=== PATIENT | male | born 1965 | race Caucasian/White ===

== ENCOUNTER → 2022-11-08 | Outpatient (CLI) | payer BC | END | disposition home or self-care (01) | LOC: LABPAT 13:53 | PROVIDERS: ATTEND Orthopaedic Surgery | DX: Z01.812 Encounter for preprocedural laboratory examination (principal); Z22.322 Carrier or suspected carrier of Methicillin resistant Staphylococcus aureus; M17.11 Unilateral primary osteoarthritis, right knee | CPT/HCPCS: 87070 ==

== ENCOUNTER 2022-11-14 08:24 | Day surgery (SDC) | payer BC ==
[2022-11-07 15:09] VITALS: BMI 31.8
--- NOTE | 2022-11-13 09:38 | P.HPOR ---
History of Present Illness H&P Date: 11/13/22 Chief Complaint: Right knee pain The patient is a 57-year-old retired male who presents with progressive right knee pain for the past several years worsening recently. He notes medial pain and swelling with all activity. He is having significant night symptoms. He tried medications in addition to injections with minimal relief. He notes daily pain that limits his normal function and activities. Review of Systems As per HPI Past Medical History Past Medical History: Cancer Additional Past Medical History / Comment(s): BASAL CELL CARCINOMA. BLEEDING ULCER History of Any Multi-Drug Resistant Organisms: None Reported Additional Past Surgical History / Comment(s): BASAL CELL CARCINOMA REMOVED. BLEEDING ULCER SURGERY Past Anesthesia/Blood Transfusion Reactions: No Reported Reaction Past Psychological History: No Psychological Hx Reported Smoking Status: Never smoker Past Alcohol Use History: Daily Additional Past Alcohol Use History / Comment(s): ABOUT 2 BEERS A DAY Past Drug Use History: None Reported - Past Family History Father Family Medical History: CVA/TIA, Deep Vein Thrombosis (DVT) Additional Family Medical History / Comment(s): FROM DVT POST OP Medications and Allergies Home Medications Medication Instructions Recorded Confirmed Type No Known Home Medications 11/07/22 11/07/22 History Allergies Allergy/AdvReac Type Severity Reaction Status Date / Time No Known Allergies Allergy Verified 11/07/22 14:33 Physical Examination - Knee right Appearance: effusion Effusion grade: grade 2 Tenderness with palpation: medial, lateral Pain: throughout ROM Gait: limping ROM: extension: -10 degrees ROM: flexion: 100 degrees Crepitus with motion: Yes Strength: extension: 5/5 Strength: flexion: 5/5 Meniscal tests: medial meniscal tests: positive, lateral meniscal tests: positive, medial joint line pain: positive, lateral joint line pain: positive Results The patient is a well-developed well-nourished male approximately 6 foot 1, 235 pounds of mesomorphic habitus. HEENT exam is nonfocal, neck is supple. He has painless passive motion of the right hip. Straight leg raise is negative. On the right knee, he is tender about the medial and lateral joint line. Collaterals are stable, Trisha is negative, Partha's is equivocal. His distal neurovascular exam appears intact in the right lower extremity. - Diagnostic results Knee x-ray: image reviewed (3 views of the right knee obtain the office shows severe lateral and patellofemoral compartment osteoarthrosis) Assessment and Plan Assessment: Right knee severe lateral and patellofemoral compartment osteoarthrosis Plan: I talked to the patient regarding his condition along with treatment options. At this point is quite symptomatically and limited because of pain related to his right knee osteoarthrosis despite conservative measures. After a thorough discussion he opted to proceed with surgery. We'll plan to proceed with right total knee arthroplasty. Risks and benefits were discussed at length layman's terms. We will institute DVT prophylaxis postoperatively.
[~2022-11-14 08:24] MED LIST: ACETAMINOPHEN TAB 500 MG TAB PO PRN; DEXAMETHASONE SOD PHOSPHATE 4 MG/ML 1 ML VIAL IV ONE; HYDROmorphone 0.5 MG/0.5 ML SYRINGE IVP PRN; LIDOCAINE 1% (10MG/ML) FOR IV START INTRADERMA PRN; MELOXICAM 7.5 MG TAB PO PRN; MIDAZOLAM 2 MG/2 ML VIAL IV PRN; ONDANSETRON 4 MG/2 ML VIAL IVP ONE; TRANEXAMIC 1,000 MG/100ML-NACL 1,000 MG in SALINE 1 100ML.BAG IVPB PRN
[2022-11-14] MEDS: LACTATED RINGERS 1,000 ML IV SCH (09:21)
[2022-11-14] MEDS ORDERED: KETAMINE HCL IN 0.9 % NACL 50 MG/5 ML SYRINGE ONE (10:20)
[2022-11-14] MEDS ORDERED: diphenhydrAMINE 50 MG/ML 1 ML VIAL ONE (10:20)
[2022-11-14] MEDS ORDERED: MIDAZOLAM 2 MG/2 ML VIAL ONE (10:20)
[2022-11-14] MEDS ORDERED: fentaNYL (PF) 50 MCG/ML 2 ML AMP ONE (10:20)
[2022-11-14] MEDS ORDERED: TRANEXAMIC 1,000 MG/100ML-NACL PREMIX BAG ONE (10:20)
[2022-11-14] MEDS ORDERED: PROPOFOL 10 MG/ML 20 ML VIAL IV ONE (10:20)
[2022-11-14] MEDS ORDERED: DEXAMETHASONE SOD PHOSPHATE 4 MG/ML 1 ML VIAL ONE (10:20)
[2022-11-14] MEDS ORDERED: GLYCOPYRROLATE 0.2 MG/ML 2 ML VIAL ONE (10:20)
[2022-11-14] MEDS ORDERED: ROPIVACAINE 5 MG/ML 30 ML VIAL ONE (10:20)
[2022-11-14] MEDS ORDERED: ceFAZolin 1,000 MG in SODIUM CHLORIDE 0.9% 1,000 ML IRRIGATION ONE (10:55)
[2022-11-14] MEDS ORDERED: LACTATED RINGERS 1,000 ML IV ONE (11:22)
[2022-11-14] MEDS ORDERED: NALOXONE 0.4 MG/ML 1 ML VIAL IV PRN (12:10)
[2022-11-14] MEDS ORDERED: HYDROmorphone 0.5 MG/0.5 ML SYRINGE IVP PRN (12:10)
[2022-11-14] MEDS ORDERED: hydrOXYzine pamoate 25 MG CAP PO PRN (12:10)
[2022-11-14] MEDS ORDERED: MAGNESIUM HYDROXIDE 2,400 MG/30 ML CUP PO PRN (12:10)
[2022-11-14] MEDS ORDERED: HYDROmorphone 1 MG/ML 1 ML SYRINGE IVP PRN (12:10)
[2022-11-14] MEDS ORDERED: HYDROcodone/APAP 5-325MG 1 EACH TAB PO PRN (12:10)
--- NOTE | 2022-11-14 12:34 | P.OP ---
Date of Procedure: 11/14/22 Preoperative Diagnosis: Right knee severe tricompartmental osteoarthrosis Postoperative Diagnosis: Same Procedure(s) Performed: Right total knee arthroplastycementedcruciate retaining Implants: Depuy Attune size 9 cemented femoral component, size 8 cemented tibial component, 10 mm articular surface, 41 mm cemented patellar component. This was a cruciate retaining implant. Anesthesia: regional, spinal Surgeon: Yash Pastrana [facility] Manager #1: Augustus Valverde Estimated Blood Loss (ml): 50 Pathology: none sent Condition: stable Disposition: PACU Indications for Procedure: The patient is a 49-year-old male who presents with progressive right knee pain secondary to osteoarthrosis despite conservative measures. A discussion of the risks and benefits of operative intervention versus continued conservative measures was made with patient. He opted proceed with surgery. Operative risks to include infection, neurovascular injury, fracture, development of blood clots, component loosening, possible component failure and need for subscap procedures was discussed. Informed consent was obtained. Operative Findings: As below Description of Procedure: The patient was brought to the operating room, and after induction of spinal anesthesia the right lower extremity was prepped and draped in a normal fashion. The tourniquet was inflated to 270 mmHg. A longitudinal incision extending 3 finger breaths above the superior pole of the patella extending to the medial aspect the tibial tubercle was then made. The skin and subcutaneous tissues were divided sharply. Electrocautery was used for hemostasis. A medial parapatellar arthrotomy was then performed. The medial soft tissues to include the superficial and deep portions of the medial collateral ligament as well as the medial hamstring tendons were elevated subperiosteally. The proximal medial tibia osteophytes were carefully removed. The patella was everted. The knee was flexed. A portion of the retropatellar fat pad was excised sharply. The anterior cruciate ligament was sacrificed. A starting hole was made in the distal femur 1 cm anterior to the posterior cruciate origin. An intramedullary femoral guide was gently inserted planning on 5 valgus distal cut with 9 mm distal resection. The cutting block was pinned in place. The distal cut was then made. The posterior referencing sizing guide was utilized. 3 of external rotation was built into the system and verified off the trans- epicondylar axis and the posterior condyles. I felt size 9 was most appropriate. The cutting block was pinned in place. The anterior, posterior, and chamfer cuts were then made. The bone fragments were removed. A sulcus cut was then made with the appropriate guide. The trial size 9 femoral component was then placed and was fully seated. There was good anterior to posterior and medial to lateral fit. The distal peg holes were then drilled. The trial component was then removed. Attention was then paid towards preparing the proximal tibia. An extra medullary guide was utilized in line with the tibial shaft and second metatarsal distally. A 7 posterior slope was planned. I planned on 2 mm resection from the medial compartment. The cutting block was pinned in place. The proximal tibial cut was then made. The bone was removed in one fragment. The remnants of the medial and lateral menisci were excised the capsule junction with electrocautery. The tibia sized most appropriately at size 8. The posterior osteophytes off the distal femur were carefully removed with a curved osteotome. The trial tibial and femoral components were placed along with a 10 millimeters articular surface. I was able to obtain full flexion and extension with good stability with varus and valgus stress. After several flexion and extension cycles, the tibial rotation was marked with electrocautery in line with the medial one third of the tibial tubercle. Attention was then paid towards preparing the patella. A patella reamer was utilized taking this down to 14 mm of bone stock. A good flush cut was made. The patella sized most appropriately at 41 millimeters. The peg holes were then drilled. The trial component was placed. The knee was taken through a range of motion. I had good patellofemoral tracking with no hands technique. The trial components were then removed. The tibia was prepared in the appropriate rotation with appropriate drill and keel punch. The flexion and extension gaps were checked and felt to be symmetric. The bony surfaces were prepared with pulsatile lavage and dried. The deep tibial component was then cemented in place and was fully seated. Excess cement was removed. The femoral component was cemented in place and was fully seated. Again excess cement was removed. The trial 10 millimeters surface was then inserted in the knee was put in full extension. The patella component was cemented in place. After the cement had sufficiently hardened, the knee was again taken through a range of motion. Again there was good stability in flexion and extension with varus and valgus stress. The trial articular surface was then removed. The final articular surface was placed and was impacted. Care was taken to avoid any soft tissue interposition. Pulsatile lavage was again utilized. The tourniquet was deflated with approximately 60 minutes total tourniquet time. There was minimal drainage therefore a deep drain was not placed. The medial parapatellar arthrotomy was then closed with #2 Ethibond suture. The subcutaneous tissues were reapproximated interrupted 2-0 Vicryl sutures. The skin was reapproximated with 3-0 subarticular strata fix suture. Skin tape and adhesive was applied. A sterile dressing was applied. The patient was then awoken from sedation and transferred to recovery room in good condition. Blood loss was estimated at[] milliliters. No complications were incurred. Sponge and needle counts were correct at the end the case. Augustus CONNORS assisted during the major components this case to include exposure, bone resection, and implantation.
[2022-11-14] MEDS ORDERED: ROPIVACAINE 0.2%-NS ON-Q PUMP 2 MG/ML EACH MISCELLANE ONE (12:39)
--- NOTE | 2022-11-14 12:58 | XR ---
EXAMINATION TYPE: XR knee limited RT DATE OF EXAM: 11/14/2022 12:54 PM INDICATION: Patient age:Male; 57 years old; Reason for study: Evaluation for Postop abnormality and alignment; [facility]. COMPARISON: Right knee radiographs 07/19/2022 TECHNIQUE: The Right knee(s) was examined in until crosstable lateral projections. FINDINGS: Postsurgical changes from total right knee arthroplasty with distal femoral and proximal tibial components. Hardware appears intact with appropriate alignment. There is associated soft tissu e gas and edema. No acute fracture or dislocation. IMPRESSION: Postsurgical changes from total right knee arthroplasty. Hardware appears intact with appropriate ali gnment.
[2022-11-14 17:57] VITALS: RESP 18
[2022-11-14] MEDS: HYDROcodone/APAP 7.5-325MG 1 EACH TAB PO PRN (18:39)
[2022-11-14] MEDS ORDERED: SENNOSIDES-DOCUSATE SODIUM 1 EACH TAB PO SCH (21:00)
[2022-11-15] MEDS: HYDROcodone/APAP 7.5-325MG 1 EACH TAB PO PRN ×3 (01:13→11:43)
--- NOTE | 2022-11-15 07:02 | P.PN ---
Progress Note - Text Progress Note Date: 11/15/22 Postoperative day # 1 status post total knee arthroplasty, and adductor canal catheter placed for postoperative analgesia, currently at ropivacaine 0.2% 8 mL per hour and continuous infusion, visual analogue scale is 3/10, patient using oral pain medication for breakthrough pain. Assessment and plan= Acute postoperative pain, adductor canal catheter for pain control, pain is well controlled we'll continue the same management.
[2022-11-15] MEDS: LACTATED RINGERS 1,000 ML IV SCH (07:50)
[2022-11-15 08:24] VITALS: BP 125/76; PULSE 66; TEMP 97.9
--- NOTE | 2022-11-15 08:34 | P.PN ---
Subjective Progress Note Date: 11/15/22 Principal diagnosis: Right knee osteoarthritis Patient was seen at bedside this morning lying semirecumbent position eating breakfast. Patient says his pain is well-controlled with oral medication. Patient says he has been up around the room several times since surgery yesterda y. Patient says he has urinated several times. Patient says he has not had bowel movement yet, however, patient says he has been passing gas. Patient is looking forward to working with therapy earlier this morning and is hoping to go home today. Patient says he does not have great home. Patient denies any chest pain, fever, shortness breath, nausea, vomiting, change in vision, loss of bowel/bladder control. Objective - Vital Signs Vital signs: Vital Signs Temp 97.9 F 11/15/22 07:20 Pulse 66 11/15/22 07:20 Resp 18 11/15/22 07:20 BP 125/76 11/15/22 07:20 Pulse Ox 97 11/15/22 07:20 FiO2 Intake & Output 11/14/22 11/15/22 11/15/22 18:59 06:59 18:59 Intake Total 1931 Output Total 50 Balance 1881 Weight 109.5 kg Intake: IV 1451 Oral 480 Output: Estimated Blood Loss 50 Other: Voiding Method Toilet # Voids 0 2 - Exam Right knee: Incision is clean, dry, and intact. The exofin fusion tape is in good condition. There is minimal soft tissue swelling and ecchymosis surrounding the medial and lateral aspects of the incision. Calf is soft, no tenderness with palpation. Plantar flexion, dorsiflexion, EHL, FHL are intact. Sensory exam to light touch throughout the extremity is intact, dorsal pedis pulses 2+. Assessment and Plan Assessment: 1. Right knee osteoarthritis - Postop day 1 status post right total knee arthroplasty Plan: 1. Right knee osteoarthritis - right total knee arthroplasty performed yesterday, 11/14/2022. Patient stable at bedside this morning. Pain medication as needed. Walker prescription signed for home. Pending PT/OT, plan for discharge home with health services later today. 2. Appreciate medical management 3. Pain management - [place] 4. DVT prophylaxis - Xarelto in hospital. Going home with eliquis 2.5 mg twice a day 2 weeks 5. GI prophylaxis - senna 6. PT/OT - weightbearing as tolerated with walker 7. Encourage incentive spirometer use 8. Discharge planning - pending PT/OT eval, plan for discharge home with health services later today. Time with Patient: Less than 30
[2022-11-15] MEDS ORDERED: RIVAROXABAN 10 MG TAB PO SCH (09:00)
--- NOTE | 2022-11-15 10:47 | P.DS ---
Providers Date of admission: 11/14/2022 Expected date of discharge: 11/15/22 Attending physician: Yash Pastrana Consults: 11/14/22 12:10 Consult Physician Routine Consulting Provider: Gissell Stearns Consult Reason/Comments: Medical Management s/p right total knee arthroplasty Do you want consulting provider notified?: Yes Primary care physician: Stated None Hospital Course: Date of admission: 11/14/2022 Date of discharge: 11/15/2022 Admission diagnosis: Right knee osteoarthritis Discharge diagnosis: Same Attending physician: Dr. Pastrana Surgical procedures: Right total knee arthroplasty Brief history: Patient is a 57-year-old male with a history of progressive primary right knee osteoarthritis. At this point patient has failed conservative treatment measures and has opted to proceed with a elective right total knee arthroplasty. Hospital course: Details of patient's surgery can be found in operative report. Patient tolerated the procedure well and was subsequently transported to orthopedic floor. Patient's orthopeidc and medical care was provided daily. Patient had daily laboratory tests performed for evaluation of overall blood counts. Patient had daily physical therapy to include strengthening range of motion as well as education with walker ambulation. Patient was treated with Xarelto for their postoperative DVT prophylaxis during their inpatient stay. Patient was noted to have a relatively uneventful postoperative course. Patient reported satisfactory pain control with oral pain medications by postoperative day 1. Patient showed satisfactory progress with physical therapy. Patient moved steadily through the program and had no difficulty meeting the goals by postoperative day 1. Given patient's otherwise satisfactory course and having met physical therapy goals, plan is to discharge patient home with health services on postoperative day 1. Discharge condition/disposition: Patient will be discharged home with health services in stable condition. Discharge medications: Instructions are given on resumption of patient's normal daily medications per primary care recommendation, in addition patient will be prescribed [place] 7.5 mg/325 mg 12 every 6 hours; senna; Eliquis 2.5 mg twice a day 2 weeks. Discharge instructions: 1. Wound care and infection precautions, keep incision dry and covered while showering, no lotions, creams, moisturizers. No soaking, tubs, pools, hottubs. Do not scrub over the incision. 2. Weight-bear as tolerated with walker / cane until follow-up. 3. Ice and elevate when necessary. Do not exceed 20 minutes per hour with ice pack. 4. Utilize compression sleeve until seen at first follow up appointment. 5. Visiting nursing care. 6. Home physical therapy including home CPM. 7. Pain meds and anticoagulants per prescription. 8. Pain medication has potential to cause constipation. Increase oral fluid and fiber intake. Contact primary care provider if you have not had a bowel movement within 48 hours after discharge 9. No anti-inflammatory medication until discussed at first post operative visit, this including Motrin, Aleve, Mobic, Diclofenac. 10. Follow up in office at 2 weeks postop with Mick Shelton PA-C / Augustus Valverde PA-C 11. Follow up with your primary care doctor 7-10 days after discharge. 12. Contact [facility] with any questions, . Assessment: Right knee osteoarthritis Procedures: Right total knee arthroplasty Patient Condition at Discharge: Good Plan - Discharge Summary Discharge Rx Participant: Yes New Discharge Prescriptions: New Apixaban [Eliquis] 2.5 mg PO BID #60 tab HYDROcodone/APAP 7.5-325MG [[place] 7.5] 1 - 2 each PO Q6HR PRN #36 tab PRN Reason: Pain Sennosides/Docusate Sodium [Senna Plus 8.6-50 mg Softgel] 1 each PO DAILY #20 capsule Discharge Medication List Apixaban [Eliquis] 2.5 mg PO BID #60 tab 11/15/22 [Rx] HYDROcodone/APAP 7.5-325MG [Newnan 7.5] 1 - 2 each PO Q6HR PRN #36 tab 11/15/22 [Rx] Sennosides/Docusate Sodium [Senna Plus 8.6-50 mg Softgel] 1 each PO DAILY #20 capsule 11/15/22 [Rx] Follow up Appointment(s)/Referral(s): Augustus Valverde, PAC [PHYSICIAN ARM MAKER] - 2 Weeks Patient Instructions/Handouts: Knee Replacement (DC) Activity/Diet/Wound Care/Special Instructions: Orthopedic Discharge Instructions: 1. Wound care and infection precautions, keep incision dry and covered while showering, no lotions, creams, moisturizers. No soaking, pools, hot tubs. Do not scrub over incision. 2. Weight-bear as tolerated with walker / cane until follow-up. 3. Ice and elevate when necessary. Do not exceed 20 minutes per hour with ice pack. 4. Utilize compression sleeve until seen at first follow up appointment. 5. Pain meds and anticoagulants per prescription. 6. Pain medication has potential to cause constipation. Increase oral fluid and fiber intake. Contact primary care provider if you have not had a bowel movement within 48 hours after discharge. 7. No anti-inflammatory medication until discussed at first post operative visit, this including Motrin, Aleve, Mobic, Diclofenac. 8. Follow up in office at 2 weeks postop with Mick Shelton PA-C / Augustus Valverde PA-C 9. Follow up with your primary care doctor 7-10 days after discharge. 10. Contact [facility] with any questions, . Keep incision clean, dry, intact. While showering, cover fusion tape with Saran wrap. Keep fusion tape on until follow-up appointment in office in 2 weeks Discharge Disposition: HOME WITH HOME HEALTH SERVICES
[2022-11-15 15:34] LABS: Basophils # (A) 0.02 X 10*3/uL (0.00-0.10); Basophils % (A) 0.2 %; Eosinophils # (A) 0.01 X 10*3/uL (0.04-0.35); Eosinophils % (A) 0.1 %; HCT 38.2 % (39.6-50.0); HGB 12.6 d/dL (13.0-17.0); Lymphocytes % (A) 9.7 %; MCH 30.2 pg (27.0-32.0); MCV 91.6 FL (80.0-97.0); Mean Platelet Volume 11.4 FL (9.5-12.2); Monocytes # (A) 0.72 X 10*3/uL (0.20-1.00); Monocytes % (A) 5.8 %; NRBC Per 100 WBC 0 X 10*3/uL (0.00-0.01); Neutrophils # (A) 10.34 X 10*3/uL (1.80-7.70); Neutrophils % (A) 83.7 %; Platelet Count 215 X 10*3/uL (140-440); RBC 4.17 X 10*6/uL (4.40-5.60); RDW 12.7 % (11.5-14.5); WBC 12.35 X 10*3/uL (4.50-10.00)
--- NOTE | 2022-11-15 18:29 | P.ANPRN ---
Procedure Note - Anesthesia - Nerve Block Performed Right Adductor Canal Infusion Time Out Performed: Yes Date of Procedure: 11/14/22 Procedure Start Time: 09:42 Procedure Stop Time: 09:51 Location of Patient: PreOp Indication: Acute Post-Operative Pain, Requested by Surgeon Sedation Type: Sedate with meaningful contact maintained Preparation: Sterile Prep, Sterile Dressing Position: Supine Catheter: Indwelling Needle Types: Pajunk Needle Gauge: 21 Ultrasound used to visualize needle placement: Yes Ultrasound used to observe medication spread: Yes Blood Aspirated: No Pain Paresthesia on Injection Noted: No Resistance on Injection: Normal Image Stored and Saved: Yes Events: Uneventful and Well Tolerated (Ropivacaine 0.5% 20 mL plus dexamethasone 4 mg)
--- NOTE | 2022-11-15 18:32 | P.ANPRN ---
Procedure Note - Anesthesia - Nerve Block Performed Right [place] Single Time Out Performed: Yes Date of Procedure: 11/14/22 Procedure Start Time: :52 Procedure Stop Time: :55 Location of Patient: PreOp Indication: Acute Post-Operative Pain, Requested by Surgeon Sedation Type: Sedate with meaningful contact maintained Preparation: Sterile Prep Position: Supine Needle Types: Pajunk Needle Gauge: 21 Ultrasound used to visualize needle placement: Yes Ultrasound used to observe medication spread: Yes Blood Aspirated: No Pain Paresthesia on Injection Noted: No Resistance on Injection: Normal Image Stored and Saved: Yes Events: Uneventful and Well Tolerated (Ropivacaine 0.5% 25 mL plus dexamethasone 4 mg)
== END 2022-11-15 11:49 | disposition home health service (06) ==
LOC: OR 08:24 → 4SSUR 12:24 → OR 11-15 11:49
PROVIDERS: ATTEND Orthopaedic Surgery
DX: M17.11 Unilateral primary osteoarthritis, right knee (principal); G89.18 Other acute postprocedural pain; Z85.828 Personal history of other malignant neoplasm of skin; Z86.59 Personal history of other mental and behavioral disorders; Z86.73 Personal history of transient ischemic attack (TIA), and cerebral infarction without residual deficits; Z79.899 Other long term (current) drug therapy
CPT/HCPCS: 27447; 97161; 64999; 64448; 85025; 73560; C1713 ×2; C1776; C1751; J2250; J1100; J0690 ×3; J2405; J2795

== ENCOUNTER 2023-01-02 08:13 | Day surgery (SDC) | payer BC ==
--- NOTE | 2023-01-01 08:56 | P.HPOR ---
History of Present Illness H&P Date: 01/01/23 Chief Complaint: Right knee stiffness The patient is a 57-year-old male who presents after undergoing right total knee arthroplasty 11/14/2022 with persistent stiffness despite adequate postoperative rehabilitation. He denies any wound healing problems. He denies fevers or chills. He does have stiffness and ambulates with a cane. He has been in therapy. He is taking Motrin as needed. Review of Systems Negative except as in HPI Past Medical History Past Medical History: Cancer, GI Bleed Additional Past Medical History / Comment(s): Basal cell skin cancer with removal. History of Any Multi-Drug Resistant Organisms: None Reported Past Surgical History: Joint Replacement Additional Past Surgical History / Comment(s): 11/14/22 Total R knee, surgery for bleeding ulcer. Past Anesthesia/Blood Transfusion Reactions: No Reported Reaction Smoking Status: Never smoker - Past Family History Mother History Unknown: Yes Additional Family Medical History / Comment(s): Mother is 94 yrs old Father Family Medical History: CVA/TIA, Deep Vein Thrombosis (DVT) Additional Family Medical History / Comment(s): Medications and Allergies Home Medications Medication Instructions Recorded Confirmed Type Ibuprofen [Motrin Ib] 400 mg PO Q6H 12/27/22 12/27/22 History Allergies Allergy/AdvReac Type Severity Reaction Status Date / Time No Known Allergies Allergy Verified 12/27/22 14:21 Physical Examination - Knee right Previous incision location: Well-healed incision Tenderness with palpation: none Pain: no pain ROM: extension: -15 degrees ROM: flexion: 65 degrees Strength: extension: 5/5 Strength: flexion: 5/5 Results The patient is a well-developed well-nourished male proximal and 60, 236 pounds of endomorphic habitus. HEENT exam is nonfocal, neck is supple. He has painless passive motion of the right hip. Straight leg raise is negative. Right knee is stable to varus and valgus stress. He has good patellofemoral tracking. Homans is negative. His distal neurovascular appears intact in the right lower extremity. Assessment and Plan Assessment: Status post right total knee arthroplasty Right knee arthrofibrosis Plan: I talked with the patient regarding his condition and at this point recommend proceeding with manipulation under anesthesia. Risks and benefits were discussed at length in layman's terms. We'll perform that utilizing IV sedation. We will have him start a Medrol Dosepak after the procedure along with continuing aggressive formal therapy.
[~2023-01-02 08:13] MED LIST changes: -ACETAMINOPHEN TAB 500 MG TAB PO PRN; -DEXAMETHASONE SOD PHOSPHATE 4 MG/ML 1 ML VIAL IV ONE; +LACTATED RINGERS 1,000 ML IV SCH; -LIDOCAINE 1% (10MG/ML) FOR IV START INTRADERMA PRN; -MELOXICAM 7.5 MG TAB PO PRN; -ONDANSETRON 4 MG/2 ML VIAL IVP ONE; -TRANEXAMIC 1,000 MG/100ML-NACL 1,000 MG in SALINE 1 100ML.BAG IVPB PRN
[2023-01-02 09:01] VITALS: TEMP 98.2
[2023-01-02] MEDS ORDERED: MIDAZOLAM 2 MG/2 ML VIAL ONE (09:53)
[2023-01-02] MEDS ORDERED: KETOROLAC 30 MG/ML 1 ML VIAL ONE (09:53)
[2023-01-02] MEDS ORDERED: LIDOCAINE 1% INJ 10MG/ML (20 ML MDV) ONE (09:53)
[2023-01-02] MEDS ORDERED: PROPOFOL 10 MG/ML 20 ML VIAL IV ONE (09:53)
--- NOTE | 2023-01-02 10:07 | P.OP ---
Date of Procedure: 01/02/23 Preoperative Diagnosis: Status post right total knee arthroplasty/arthrofibrosis right knee Postoperative Diagnosis: Same Procedure(s) Performed: Manipulation under anesthesia right knee Anesthesia: MAC Surgeon: Yash Pastrana Estimated Blood Loss (ml): 0 Pathology: none sent Condition: stable Disposition: PACU Indications for Procedure: The patient's a 57-year-old male who presents with persistent right knee stiffness after recently undergoing a right total knee arthroplasty despite adequate rehabilitation. He discussion of the risks and benefits of manipulation under anesthesia was made and he opted to proceed. Specific risks of manipulation to include recurrence of stiffness, fracture, tendon rupture, and possible need for subsequent procedures was discussed. Informed consent was obtained. Operative Findings: As below Description of Procedure: The patient was brought to the recovery room, and after induction of IV sedation I then manipulated the right knee. I was able to go from 65 of flexion to 110 of flexion with gentle manipulation. Moderate adhesions were encountered. I was able to obtain -5 full extension. He tolerated the procedure well. No complications were incurred. He was monitored until fully awake. There was no blood loss.
[2023-01-02 11:33] VITALS: RESP 16
[2023-01-02 11:34] VITALS: BP 154/85; PULSE 70
== END 2023-01-02 12:08 | disposition home or self-care (01) ==
LOC: OR 08:13
PROVIDERS: ATTEND Orthopaedic Surgery
DX: M24.661 Ankylosis, right knee (principal); Z85.828 Personal history of other malignant neoplasm of skin; Z86.73 Personal history of transient ischemic attack (TIA), and cerebral infarction without residual deficits; Z82.3 Family history of stroke; Z79.899 Other long term (current) drug therapy
CPT/HCPCS: 27570; J2250; J2001; J1885; J2704; J1170